=== PATIENT | male | born 1950 | race Caucasian/White ===

== ENCOUNTER 2024-01-01 12:23 | Emergency (ER) | payer MEDICARE, OTHER, SELFPAY ==
[2024-01-01 12:25] VITALS: BP 220/140
[2024-01-01 12:47] VITALS: BP 209/112
[2024-01-01 12:49] LABS: % Basophils 0.3 % (0-2); % Eosinophils 0.3 % (0-6); % Immature Granulocytes 1.3 % (0-0.5); % Lymphocytes 14.4 % (20.5-51.1); % Monocytes 6.9 % (1.7-9.3); % Neutrophils 76.8 % (42.2-75.2); Absolute Basophils 0.1 10^3/uL (0-0.2); Absolute Eosinophils 0.1 10^3/uL (0-0.7); Absolute Immature Granulocytes 0.2 10^3/uL (0-0.05); Absolute Lymphocytes 2.5 10^3/uL (1.2-3.4); Absolute Monocytes 1.2 10^3/uL (0.1-0.6); Absolute Neutrophils 13.5 10^3/uL (1.4-6.5); Hematocrit 54.3 % (39.0-52.0); Hemoglobin 18.5 g/dL (13.0-18.0); Mean Corp Hgb Conc. 34.1 g/dL (33.0-37.0); Mean Corpuscular Hgb 29.9 pg (27.0-31.0); Mean Corpuscular Volume 87.7 fL (80.0-94.0); Mean Platelet Volume 9.7 fL (7.4-10.4); Nucleated Red Blood Cells % 0 % (-); Platelet Count 220 10^3/uL (130-400); Red Blood Cell Count 6.19 10^6/uL (4.70-6.10); Red Cell Dist. Width 13.9 % (11.5-14.5); White Blood Cell Count 17.6 10^3/uL (4.8-10.8)
[2024-01-01 13:00] VITALS: BP 181/101
[2024-01-01 13:03] LABS: ALT (SGPT) 30 U/L (0-50); AST (SGOT) 25 U/L (17-59); Albumin 4.6 g/dl (3.5-5.0); Alkaline Phosphatase 85 U/L (38-126); Blood Urea Nitrogen 29 mg/dl (9-20); Calcium 9.5 mg/dl (8.4-10.2); Carbon Dioxide 23 mmol/L (22-30); Chloride 100 mmol/L (98-107); Glucose 104 mg/dl (70-99); Potassium 4.5 mmol/L (3.5-5.1); Sodium 131 mmol/L (135-145); Total Bilirubin 1.1 mg/dl (0.2-1.3); Total Protein 7.7 g/dl (6.3-8.2); eGFR > 60.00
[2024-01-01] MEDS: TORADOL 15 MG IV (13:35)
[2024-01-01] MEDS: TYLENOL 1000 MG PO (13:35)
[2024-01-01] MEDS: SOLU-MEDROL PF 125 MG IV (13:36)
[2024-01-01] MEDS: DILAUDID 0.5 MG IV (13:36)
[2024-01-01] MEDS: LIDOCAINE 4% PATCH 1 PATCH TOPICAL (13:58)
[2024-01-01 14:00] VITALS: BP 169/110
--- NOTE | 2024-01-01 14:33 | ED.GENMED ---
History of Present Illness
General
Chief Complaint: Back Pain
Source: patient and spouse
Exam Limitations: none
Time Seen by Provider: 01/01/24 13:06
Nursing documentation reviewed up to this point in time: agreed with
Travel History
Have you had any contact with someone who has COVID-19?: No
Do you have any symptoms of coronavirus? Fever > 100 degrees, chills, cough, shortness of breath, sore throat, loss of taste or smell, muscle aches, or headache?: No
History of Present Illness
History of Present Illness:
73-year-old male with a past medical history of atrial fibrillation, hypertension who presents to the emergency department for evaluation of low back pain. Patient reports onset afternoon�patient and think a trigger may have been
lifting a box that was delivered in the mail that weighed about 35 pounds. He reports pain in the low back radiating to the right buttock and shooting down the right leg. Much worse with movement and shooting pains worse with straightening his
leg. His pain seems to be a bit better with flexion of his right knee. He denies any numbness or weakness in the extremities. Denies any saddle anesthesia. Denies any bowel or bladder incontinence. He denies any falls. He denies any fevers or
chills. He denies any history of cancer. He denies being on any blood thinners despite his history of A-fib. He has had similar symptoms in the distant past related to herniated disc; he had surgery in the early for disc herniation.
Review of Systems
Review of Systems
All Other Systems: ROS reviewed and negative except as documented in HPI and ROS
Constitutional: Denies fever or chills
EENT: Denies sore throat or runny nose
Respiratory: Denies cough or trouble breathing
Cardiac: Denies chest pain
ABD/GI: Denies abdominal pain, nausea or vomiting
: Denies flank pain or incontinence
Musculoskeletal: Reports back pain; Denies neck pain
Neurological: Denies headache, weakness or numbness
Phy Exam
Physical Exam
Physical Exam:
General: Awake, alert, oriented x3; appears uncomfortable sitting up in the bed
Head: Normocephalic, atraumatic
Eyes: Conjunctiva normal, EOMI
Throat: Airway intact, handling secretions
Neck: Trachea midline, supple without meningismus
Lungs: Clear to auscultation bilaterally, no wheezing, rales, rhonchi
Heart: Regular rate and rhythm, no murmurs, gallops, or rubs
Abd: Soft, non distended, nontender with no masses
Back: He has some paraspinal tenderness at the level of L2-L3 on the right side but no midline thoracic or lumbar spine tenderness; has a scar in the lumbar region from prior surgery; patient has a positive straight leg raise test right lower
extremity relief with flexion of the knee (bowstringing)
Neuro: Cranial nerves grossly intact, speech fluid; he has some very slight weakness on dorsiflexion of the right great toe but strength otherwise intact in the right lower extremity 5/5 and sensory exam is intact in the right lower extremity; motor
and sensory function intact entire left lower extremity; DTRs intact lower extremities bilaterally
Skin: no rash
Extremities: No edema in extremities, equal pulses in all extremities
Scores
Heart Failure Risk
Heart Failure Risk Score: Not Applicable
Heart Score for Chest Pain Patients
STEMI patient?: Not applicable
Withdrawal Assessment of Alcohol
Withdrawal Assessment Completed?: Not applicable
Course
Orders/Labs/Results
Orders:
Orders
01/01/24 12:41
EKG [Electrocardiogram (*1)] Urgent
Reason for Study: Hypertension, Benign
EKG- Treatment ONCE
01/01/24 12:42
Complete Blood Count/With Diff Urgent
Comprehensive Metabolic Panel Urgent
01/01/24 13:27
HYDROmorphone [Dilaudid] 0.5 mg IV NOW STA
Ketorolac [Toradol] 15 mg IV NOW STA
CR Lumbar Spine 2 Or 3 Views Urgent
Comment:
Reason For Exam: low back pain
01/01/24 13:28
MethylPREDNISolone PF [Solu-Medrol Pf] 125 mg IV NOW STA
01/01/24 13:30
Acetaminophen [Tylenol] 1,000 mg PO NOW STA
Lidocaine [Lidocaine 4% Patch] 1 patch TOPICAL ONCE ONE
Abnormal Lab Results
01/01/24
12:42
WBC 17.6 H 10^3/uL
(4.8-10.8)
RBC 6.19 H 10^6/uL
(4.70-6.10)
Hgb 18.5 H g/dL
(13.0-18.0)
Hct 54.3 H %
(39.0-52.0)
Abs Immat Gran (auto) 0.2 H 10^3/uL
(0-0.05)
Absolute Neuts (auto) 13.5 H 10^3/uL
(1.4-6.5)
Absolute Monos (auto) 1.2 H 10^3/uL
(0.1-0.6)
Immature Gran % 1.3 H %
(0-0.5)
Neutrophils % 76.8 H %
(42.2-75.2)
Lymphocytes % 14.4 L %
(20.5-51.1)
Sodium 131 L mmol/L
(135-145)
BUN 29 H mg/dl
(9-20)
Glucose 104 H mg/dl
(70-99)
01/01/24 12:42
01/01/24 12:42
Vital Signs
Blood pressure: 174/102
Initial and Last Documented VS:
Initial Vital Signs
Temp Pulse Resp BP Pulse Ox
36.4 C 80 18 220/140 97
01/01/24 12:25 01/01/24 12:25 01/01/24 12:25 01/01/24 12:25 01/01/24 12:25
Last Documented Vital Signs
Temp Pulse Resp BP Pulse Ox
36.4 C 73 16 174/102 95
01/01/24 12:25 01/01/24 15:30 01/01/24 15:30 01/01/24 15:11 01/01/24 15:30
MDM/Problems Addressed
Differential Diagnosis Includes:
Lumbar radiculopathy, bulging/herniated disc, myofascial strain, back spasms, fracture
MDM/Problems Addressed:
73-year-old male presents for evaluation of right low back pain likely triggered by lifting a heavy box on . Has shooting pains down the right buttock and down the entire leg. He arrives hypertensive likely related to pain he appears quite
uncomfortable. Vital signs otherwise normal. Physical exam as above. History and exam are most consistent with bulging/herniated disc and lumbar radiculopathy; he has no red flag symptoms or signs on exam to suggest cauda equina syndrome or other
emergent pathology. Given his age we will check a lumbar x-ray. He had basic lab work sent in triage which we will follow-up on. Will treat symptomatically. Will reassess after the above.
Lumbar x-ray reviewed by me no acute pathology. His CBC appears hemoconcentrated, CMP no clinically significant abnormalities. Patient had significant symptomatic improvement with treatment here in the emergency room. He is able to get up and
ambulate with minimal pain. I think he is stable for discharge at this point in time. I did speak to our pain and spine physician (Dr. Pereira) to arrange for outpatient follow-up this week. Patient feels very comfortable with this plan. I did
speak to him about return precautions in detail. All questions were answered.
Acute Exacerbation and/or Progression of Chronic Illness:
Acutely hypertensive
Acute Exacerbation and/or Progression of Chronic Illness: HTN
*Radiology
Radiology exam reviewed: preliminary read by ED provider and radiology read reviewed
*Pulse Oximetry
Patient hypoxic: no
*EKG
Interpreted by ED Provider?: Yes
Heart Rate: 70
Rate: normal
Rhythm: sinus
[place]: left axis deviation
Interval: normal interval
QRS Pattern: left bundle branch block
Ischemia: no ischemia
*Critical Care Note
Total Time (30-74mins, 75-104mins- exclusive of procedures): Not Applicable
Data Reviewed
Source: patient and spouse
Patient Management
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
ED Attending Note
-
Portions of this chart may have been created with voice recognition software.� Occasional wrong word or��sound alike� substitutions may have occurred due to the inherent limitations of voice recognition software.
Discharge Plan
Departure
Patient Disposition: Home (Routine Discharge)
Date of Disposition: 01/01/24
Time of Disposition: 15:10
Patient with high blood pressure during this ER visit?: Yes
Discharge Problem:
Acute lumbar radiculopathy, Low back pain, Hypertension
Instructions: Low Back Pain (DC), Radiculopathy (DC), BLOOD PRESSURE
Prescriptions:
New
prednisone 10 mg Tablet
See Rx Instructions .ROUTE .COMPLEX Qty: 45 0RF
Rx Instructions:
Take By Mouth:
50 mg daily x3 days, 40 mg daily x3 days,
30 mg daily x3 days, 20 mg daily x3 days,
10 mg daily x3 days
lidocaine 4 % adhesive patch,medicated
1 patch topical DAILY PRN (Reason: Pain) Qty: 30 0RF
ibuprofen 600 mg tablet
600 mg PO Q8H PRN (Reason: Pain) Qty: 30 0RF
oxycodone 5 mg tablet
5 mg PO Q8H PRN (Reason: Pain) Qty: 15 0RF
Referrals:
Jonathan Pereira MD [Active] - Call in 1-3 days for appt
([facility]
YOU SHOULD RECIEVE A CALL ON TUESDAY TO SCHEDULE FOLLOW UP IN THE OFFICE)
Fahad Morocho MD [Family Provider] -
Activity Restrictions/Additional Instructions:
Thank you for visiting the Emergency Department at [facility].
1. Please schedule a follow up appointment as directed. Call first thing tomorrow morning to make an appointment.
2. If indicated, please take your medications as instructed and indicated on discharge paperwork.
3. If any of your symptoms do not improve, or persist, or become more severe within 6-12 hours, please return to the emergency department for further care.
4. Please return to the emergency department if you develop a headache, neck pain/stiffness, fever greater than 100.4F, chest pain, shortness of breath, persistent nausea, vomiting, slurred speech, difficulty walking, numbness/tingling, weakness,
signs of infection or any other symptoms that are worrisome to you.
Please call [phone] if you have any questions.
Interventions
Interventions:
*Risk Screen - Suicide Last Done: 01/01/24 12:49
*General Assessment Last Done: 01/01/24 12:25
*Neglect/Abuse Screening Last Done: 01/01/24 12:49
*ED COVID-19 Vaccine History Last Done: 01/01/24 12:25
*Nursing Disposition Last Done: 01/01/24 15:50
ED-Musculoskeletal Assessment Last Done: 01/01/24 12:49
Discharge Date and Time
Discharge Date/Time: 01/01/24 15:50
Print Language: [place]
[2024-01-01 15:00] VITALS: BP 174/102
== END 2024-01-01 15:50 | disposition home or self-care (01) ==
LOC: EMR 12:23
PROVIDERS: EMERGENCY PHYSICIAN Emergency Medicine; FAMILY PHYSICIAN Internal Medicine
DX: M54.50 Low back pain, unspecified (principal); M51.16 Intervertebral disc disorders with radiculopathy, lumbar region; I10 Essential (primary) hypertension
CPT/HCPCS: 99285; 96374; 96375; 72100; 80053; 85025; 93005

== ENCOUNTER → 2024-01-19 11:11 | Outpatient (REF) | payer MEDICARE, OTHER, SELFPAY | LOC: MRI 3T 11:11 | PROVIDERS: ATTENDING PHYSICIAN Pain Medicine Interventional Pain Medicine; FAMILY PHYSICIAN Internal Medicine | DX: M54.16 Radiculopathy, lumbar region (principal) | CPT/HCPCS: 72148 ==

== ENCOUNTER → 2024-02-23 07:36 | Outpatient (REF) | payer MEDICARE, OTHER, SELFPAY | LOC: EMG 07:36 | PROVIDERS: ATTENDING PHYSICIAN Pain Medicine Interventional Pain Medicine | DX: M54.16 Radiculopathy, lumbar region (principal); R20.0 Anesthesia of skin | CPT/HCPCS: 95886; 95910 ==

== ENCOUNTER → 2024-08-07 09:59 | Outpatient (REF) | payer MEDICARE, OTHER, SELFPAY | LOC: EMG 09:59 | PROVIDERS: ATTENDING PHYSICIAN Orthopaedic Surgery Hand Surgery; FAMILY PHYSICIAN Internal Medicine | DX: M79.641 Pain in right hand (principal); R20.0 Anesthesia of skin | CPT/HCPCS: 95886; 95909 ==

== ENCOUNTER → 2024-08-10 12:39 | Outpatient (REF) | payer MEDICARE, OTHER, SELFPAY ==
[2024-08-10 13:54] LABS: % Basophils 0.3 % (0-2); % Eosinophils 0.9 % (0-6); % Immature Granulocytes 0.6 % (0-0.5); % Lymphocytes 16.6 % (20.5-51.1); % Monocytes 7.4 % (1.7-9.3); % Neutrophils 74.2 % (42.2-75.2); Absolute Eosinophils 0.1 10^3/uL (0-0.7); Absolute Immature Granulocytes 0.1 10^3/uL (0-0.05); Absolute Lymphocytes 1.5 10^3/uL (1.2-3.4); Absolute Monocytes 0.7 10^3/uL (0.1-0.6); Absolute Neutrophils 6.7 10^3/uL (1.4-6.5); Hematocrit 48.3 % (39.0-52.0); Hemoglobin 16.7 g/dL (13.0-18.0); Mean Corp Hgb Conc. 34.6 g/dL (33.0-37.0); Mean Corpuscular Hgb 30.5 pg (27.0-31.0); Mean Corpuscular Volume 88.3 fL (80.0-94.0); Nucleated Red Blood Cells % 0 % (-); Platelet Count 221 10^3/uL (130-400); Red Blood Cell Count 5.47 10^6/uL (4.70-6.10); Red Cell Dist. Width 12.6 % (11.5-14.5)
[2024-08-10 15:09] LABS: Blood Urea Nitrogen 25 mg/dl (9-20); Calcium 10.1 mg/dl (8.4-10.2); Carbon Dioxide 28 mmol/L (22-30); Chloride 99 mmol/L (98-107); Glucose 102 mg/dl (70-99); Potassium 4.9 mmol/L (3.5-5.1); Sodium 140 mmol/L (135-145); eGFR > 60.00
== END ==
LOC: RCS 12:39
PROVIDERS: ATTENDING PHYSICIAN Orthopaedic Surgery Hand Surgery
DX: Z01.818 Encounter for other preprocedural examination (principal)
CPT/HCPCS: 36415; 80048; 85025; 93005

== ENCOUNTER → 2024-08-15 14:20 | Outpatient (REF) | payer MEDICARE, OTHER, SELFPAY | LOC: EMG 14:20 | PROVIDERS: ATTENDING PHYSICIAN Orthopaedic Surgery Orthopaedic Surgery of the Spine; FAMILY PHYSICIAN Internal Medicine | DX: M48.062 Spinal stenosis, lumbar region with neurogenic claudication (principal); M54.16 Radiculopathy, lumbar region | CPT/HCPCS: 95886; 95910 ==

== ENCOUNTER → 2024-09-25 09:53 | Outpatient (REF) | payer MEDICARE, OTHER, SELFPAY | LOC: MRI 3T 09:53 | PROVIDERS: ATTENDING PHYSICIAN Orthopaedic Surgery Orthopaedic Surgery of the Spine | DX: M48.062 Spinal stenosis, lumbar region with neurogenic claudication (principal) | CPT/HCPCS: 72158; A9575 ==

== ENCOUNTER → 2024-10-10 15:10 | Outpatient (REF) | payer MEDICARE, OTHER, SELFPAY | LOC: PAVMRI 15:10 | PROVIDERS: ATTENDING PHYSICIAN Physician Assistant Surgical; FAMILY PHYSICIAN Internal Medicine | DX: M25.512 Pain in left shoulder (principal) | CPT/HCPCS: 73221 ==